=== PATIENT | female | born 1995 | race Caucasian/White ===

== ENCOUNTER 2019-05-06 08:07 | Inpatient (IN) | payer OTHER, BC ==
[2019-05-06] MEDS ORDERED: Ringers Lactate 1,000 ML IV PRN (18:43)
[2019-05-06] MEDS ORDERED: METHYLERGONOVINE 0.2MG/ML AMP IM PRN (18:43)
[2019-05-06] MEDS ORDERED: CARBOPROST TROME 250 MCG/ML IM PRN (18:43)
[2019-05-06] MEDS ORDERED: BUTORPHANOL 1 MG/ML INJ IV PRN (18:43)
[2019-05-06] MEDS ORDERED: PROMETHAZINE 25 MG/ML VIAL IV PRN ×2 (18:43)
[2019-05-06] MEDS ORDERED: Ringers Lactate 1,000 ML IV SCH (19:00)
[2019-05-06] MEDS ORDERED: OXYTOCIN/LR 20 UNIT/1,000 ML BAG IV SCH (19:00)
[2019-05-06 19:06] LABS: RPR Titer ND
[2019-05-06 19:08] LABS: Absolute Lymphocytes (CBC) 2.8 K/uL (0.7-4.9); Basophils % 0.2 % (0-1.3); Eosinophils % 0.4 % (0-4.4); Hematocrit 33.5 % (36.0-45.0); Lymphocytes % 22.3 % (15.3-44.8); MPV 9.1 fL (7.6-11.3); Monocytes % 3.3 % (3.3-12.3); RBC Red Blood Cell Count 3.82 M/uL (3.86-4.86)
[2019-05-06] MEDS ORDERED: miSOPROStol 100 MCG TAB ONE (19:16)
[2019-05-06] MEDS ORDERED: ZOLPIDEM TARTRATE 5 MG TABLET PO PRN (19:27)
[2019-05-06 21:52] LABS: RPR (Rapid Plasma Reagin) NON-REACT (NON-REACT)
[2019-05-06] MEDS: miSOPROStol 100 MCG TAB VAG SCH (23:00)
[2019-05-07] MEDS: miSOPROStol 100 MCG TAB VAG SCH (03:01)
[2019-05-07] MEDS ORDERED: OXYTOCIN/LR 20 UNIT/1,000 ML BAG IV SCH (07:00)
[2019-05-07] MEDS ORDERED: ROPIVACAINE HCL 100 ML IV PRN (09:10)
[2019-05-07] MEDS ORDERED: EPHEDRINE SULF 50 MG/ML VIAL IV PRN (09:14)
[2019-05-07] MEDS ORDERED: ROPIVACAINE HCL 0.2% 20ML AMP IV SCH (10:00)
[2019-05-07] MEDS ORDERED: FENTANYL CITR 100 MCG/2 ML ONE (10:05)
--- NOTE | 2019-05-07 10:28 | P.OP ---
Date of Service: 05/07/19 Findings and Operative Technique Patient is a 24-year-old 1 para 0 at 39 weeks and 6 days gestation who was admitted last night for elective induction of labor. She received 3 doses of Cytotec for cervical ripening. She is now 3+ cm dilated and awaiting epidural placement. Epidural has been placed Patient was examined following epidural placement was noted to be 4-5 cm dilated, 70% effaced with bulging membranes. Rupture of membranes was performed and meconium-stained fluid was noted. category 2 heart rate tracing with a baseline of 150 beats per min toco contractions every 3-4 min. Pitocin is currently off. Will restart as needed. Epidural for pain management. Anticipate vaginal .
[2019-05-07] MEDS ORDERED: LIDOCAINE 1% 20 ML MDV ONE (14:29)
[2019-05-07] MEDS ORDERED: CARBOPROST TROME 250 MCG/ML IM ONE (14:29)
[2019-05-07] MEDS ORDERED: METHYLERGONOVINE 0.2MG/ML AMP IM ONE (14:30)
[2019-05-07] MEDS ORDERED: METHYLERGONOVINE 0.2MG/ML AMP IM PRN (15:57)
[2019-05-07] MEDS ORDERED: MEASLES,MUMPS,RUBELLA VAC 0.5ML SQVAC ONE (15:57)
[2019-05-07] MEDS ORDERED: Tdap (Diph,Pertuss(Acell),Tet Vac) 0.5 ML SYR IMVAC ONE (15:57)
[2019-05-07] MEDS ORDERED: DOCUSATE NA/SENNA CONC 1 TAB PO PRN (15:57)
[2019-05-07] MEDS ORDERED: Oxycodone HCl/Acetaminophen 1 TAB TAB PO PRN (15:57)
[2019-05-07] MEDS ORDERED: CARBOPROST TROME 250 MCG/ML IM PRN (15:57)
[2019-05-07] MEDS ORDERED: ACETAMINOPHEN 500 MG TAB PO PRN (15:57)
[2019-05-07] MEDS ORDERED: ONDANSETRON 4 MG/2 ML VIAL IV PRN (15:57)
[2019-05-07] MEDS ORDERED: Ringers Lactate 1,000 ML IV SCH (16:00)
--- NOTE | 2019-05-07 17:53 | P.OP ---
Date of Service: 05/07/19 Findings and Operative Technique Patient delivered a viable male in cephalic presentation on 05/07/19 at __ ___. Infant was delivered over a midline episiotomy
[2019-05-07 18:17] VITALS: BMI 36.3
[2019-05-08] MEDS: IBUPROFEN 200 MG TAB PO PRN ×2 (01:25→08:30)
[2019-05-08 04:32] LABS: Absolute Lymphocytes (CBC) 3.2 K/uL (0.7-4.9); Basophils % 0.2 % (0-1.3); Eosinophils % 0.3 % (0-4.4); Hematocrit 29.2 % (36.0-45.0); Lymphocytes % 21.5 % (15.3-44.8); MPV 9.4 fL (7.6-11.3); Monocytes % 6.4 % (3.3-12.3); RBC Red Blood Cell Count 3.34 M/uL (3.86-4.86)
--- NOTE | 2019-05-08 09:44 | P.DS ---
Admission Date: 05/06/19 Discharge Date: 05/08/19 Disposition: ROUTINE DISCHARGE Discharge Condition: GOOD Vital Signs/Physical Exam: Temp Pulse Resp BP Pulse Ox 98.8 F 93 H 20 109/63 05/08/19 00:00 05/08/19 00:00 05/08/19 00:00 05/08/19 00:00 Laboratory Data at Discharge: WBC 15.1 K/uL (4.3-10.9) H D 05/08/19 04:09 Hgb 9.7 g/dL (12.0-15.0) L 05/08/19 04:09 Hct 29.2 % (36.0-45.0) L 05/08/19 04:09 Plt Count 186 K/uL (152-406) 05/08/19 04:09 Home Medications: Pnv No.95/Ferrous Fum/Folic AC [ Caplet] 1 each PO BID 05/07/19
[2019-05-08 13:04] VITALS: BP 110/63; TEMP 97.7
[2019-05-09 12:34] LABS: HBsAG Nonreactive (Nonreactive)
== END 2019-05-08 17:10 | disposition home or self-care (01) | DRG 807 ==
LOC: 2ND-WC 17:25
PROVIDERS: ADMIT Student in an Organized Health Care Education/Training Program; ATTEND Student in an Organized Health Care Education/Training Program
PROC: 3E0P7VZ Introduction of Hormone into Female Reproductive, Via Natural or Artificial Opening (ICD-10-PCS; 2019-05-06)
PROC: 10E0XZZ Delivery of Products of Conception, External Approach (ICD-10-PCS; principal; 2019-05-07)
PROC: 0W8NXZZ Division of Female Perineum, External Approach (ICD-10-PCS; 2019-05-07)
DX: O77.0 Labor and delivery complicated by meconium in amniotic fluid (principal); Z37.0 Single live birth; Z3A.39 39 weeks gestation of pregnancy
CPT/HCPCS: 36415; 85025; 86592; 86850; 86900; 86901; 87340; J0595; J2210; J2590; J2795; J3010

== ENCOUNTER 2022-04-21 04:30 | Inpatient (IN) | payer BC ==
--- NOTE | 2022-04-19 13:53 | PREOPHP ---
Date of Admission: 04/21/2022 History Of Present Illness: A 27-year-old, 3, para 1, 1 miscarriage, 1 previous vaginal deli very. Had an ultrasound yesterday and baby was breech. Options discussed, waiting for labor to see if the baby rotates spontaneously for rotation attempt or perform or even vagina l delivery discussed. The patient has chosen, she wishes to . Infection; blood loss; anest hetic complications; injury to bladder, bowel, ureter; postoperative complications; clots in legs; an d pneumonia discussed. The patient knows fully this does not constitute all the possible problems th at could occur during or following surgery. Family History: Father, mother and grandparents with hypertension. Past Medical History: No serious illnesses. Past Surgical History: No previous surgeries. Allergies: NO ALLERGIES. Medications: vitamins prior to admission. Social History: Does not smoke. Physical Examination: HEENT: Clear. Pupils equal, round, reactive to light and accommodation. Conjunctivae well perfused . No oral, lingual, or buccal lesions. Chest and Lungs: Clear. Heart: Without murmurs, thrills, heaves, or rubs. Breasts: Without masses on previous visits. Abdomen: Term size. Extremities: Clear without edema, cyanosis, or clubbing. Assessment And Plan: The patient is 1.5 cm, 40% to 50% effaced. Baby is still breech with rear-end presenting. We will schedule her for on of this week according to her wishes. If she goes into labor before, then she will get out and we will see what position of the baby is in an d we will get a flat plate that morning. If the baby is rotated, we will call off the and induce. Full discussion. The patient in agreement. ZACK/MAY Voice ID: [id number]
[2022-04-20 13:15] LABS: Absolute Lymphocytes (CBC) 2.7 K/uL (0.7-4.9); Lymphocytes % 26.2 % (15.3-44.8); MCV 81.2 fL (80-100); MPV 8.4 fL (7.6-11.3); RBC Red Blood Cell Count 3.69 M/uL (3.86-4.86)
[2022-04-20 13:22] LABS: Urine Appearance Clear (Clear); Urine Bilirubin Negative (Negative); Urine Blood Negative (Negative); Urine Color Yellow (Yellow); Urine Glucose Negative (Negative); Urine Protein Negative (Negative); Urine Specific Gravity >=1.030 (1.005-1.030); Urine Urobilinogen 0.2 mg/dL (0.2-1.0)
[2022-04-21 04:03] LABS: RPR (Rapid Plasma Reagin) NON-REACT (NON-REACT)
[~2022-04-21 04:30] MED LIST: CARBOPROST TROME 250 MCG/ML IM ONE; FAMOTIDINE 20 MG/2 ML VIAL IV ONE; METHYLERGONOVINE 0.2MG/ML AMP IM ONE; NA CIT/CITRIC AC 30 ML ORAL UDC PO ONE
[2022-04-21] MEDS ORDERED: METOCLOPRAMIDE 10 MG/2mL INJ IV SCH (05:00)
[2022-04-21] MEDS ORDERED: Ringers Lactate 1,000 ML IV SCH (05:00)
[2022-04-21] MEDS ORDERED: CEFAZOLIN SODIUM 2 GM in NA CHLORIDE 0.9% 100 ML IVPB SCH (05:00)
[2022-04-21] MEDS: Ringers Lactate 1,000 ML IV PRN ×2 (05:05→06:10)
[2022-04-21] MEDS ORDERED: CEFAZOLIN 2 GM IN 0.9% NACL 2 GM/100 ML BAG ONE (05:32)
[2022-04-21 05:54] VITALS: BMI 35.5
[2022-04-21] MEDS ORDERED: MORPHINE SULFATE/PF 1 MG/ML (10 ML AMP) ONE (07:03)
[2022-04-21] MEDS ORDERED: LIDOCAINE 1% MPF 5 ML VIAL ONE (07:03)
[2022-04-21] MEDS ORDERED: OXYTOCIN 10 UNIT/ML ML ONE (07:03)
[2022-04-21] MEDS ORDERED: BUPIVACAINE 0.75% (PF) 2 ML SP ONE (07:03)
[2022-04-21] MEDS ORDERED: EPHEDRINE SULF 50 MG/ML VIAL ONE (07:36)
--- NOTE | 2022-04-21 07:39 | RAD REPORT ---
EXAM DESCRIPTION: RAD - Abdomen Single View - 04/21/2022 6:53 am CLINICAL HISTORY: to see if baby is head down COMPARISON: OB Complete dated 04/18/2022 FINDINGS/IMPRESSION: The fetus is in breech position.
[2022-04-21] MEDS ORDERED: MIDAZOLAM HCL 2 MG/2 ML INJ ONE (07:59)
[2022-04-21] MEDS ORDERED: BISACODYL 10 MG RECTAL SUPP RC PRN (08:31)
[2022-04-21] MEDS ORDERED: ONDANSETRON 4 MG/2 ML VIAL IV PRN (08:31)
[2022-04-21] MEDS ORDERED: ACETAMINOPHEN 500 MG TAB PO PRN ×2 (08:31)
[2022-04-21] MEDS ORDERED: KETOROLAC 30 MG/ML INJ IM PRN (08:31)
[2022-04-21] MEDS ORDERED: KETOROLAC 30 MG/ML INJ IV PRN (08:31)
[2022-04-21] MEDS ORDERED: DIPHENHYDRAMINE 25 MG TAB/CAP PO PRN (08:31)
[2022-04-21] MEDS ORDERED: ONDANSETRON 4 MG (ODT) TAB PO PRN (08:31)
[2022-04-21] MEDS ORDERED: Oxycodone HCl/Acetaminophen 1 TAB TAB PO PRN ×2 (08:31)
[2022-04-21] MEDS ORDERED: hydrOXYzine HCL 25 MG TAB PO PRN (08:53)
[2022-04-21] MEDS: D5LR 1,000 ML with OXYTOCIN 20 UNIT IV SCH ×4 (09:38→21:52)
[2022-04-21] MEDS: METHYLERGONOVINE 0.2 MG TAB PO SCH ×4 (09:38→22:47)
--- NOTE | 2022-04-21 11:50 | OP ---
Surgeon: Tam Jamil MD Momd Teacher: Saji Eldridge M.D. Anesthesiologist: Dr. Thurston. Indication: A 27-year-old, 2, para 1, 39 weeks, breech presentation, declined rotation attem pt. Full preoperative counseling concerning procedure and possible complications including infection ; blood loss; anesthetic complications; injury to bladder, bowel, ureter; postoperative complications ; clots in legs; pneumonia. The patient knows fully well these not constitute all the possible probl ems that could occur during or following surgery. Anesthesia: Spinal block anesthesia. Description Of Procedure: After prepping and draping, time-out was performed. Pfannenstiel incision was created. The incision was carried to the fascia. The fascia was incised and incision carried t ransversely bilaterally. Anterior fascial plane was developed with both blunt and sharp dissection. A small bleeder in the rectus muscle was sutured with a [id number]-sd-ehtrh stitch. The lower uterine s egment was developed. The bladder flap was developed. Low transverse uterine incision was created. A 7-pound 8-ounce baby was delivered, male, Apgars 9 and 9. Placenta removed manually. Uterus liseth red of clot and blood and exteriorized. Cervical os dilated with ring clamp. The lower uterine segm ent very thick, numerous bleeders, Kirkpatrick clamps for these. Running locked stitch of 1 chromic f ollowed by imbricating stitch of 1 chromic. 0.2 mg of Methergine IM. Estimated blood loss during pr ocedure 1000 to 1100 cc. The patient had come into the hospital anemic and admitted. She had been t aking her vitamins and iron as she should have. Gutters clear of clot and blood. Uterus re placed in the peritoneal cavity. Inspection of suture line showed no further bleeding. Rectus muscl es reapproximated with 0 Vicryl, 2 interrupted sutures. The fascia was closed with 1 Vicryl running from either angle to the midline. Subcutaneous tissue closed with 2-0 plain. Mimi used for the s kin. The patient had been given 2 g of Ancef for prophylaxis. Tolerated all procedures well. Trans ferred back to her room in good condition. Final Diagnoses: Term intrauterine , breech presentation, primary section, spinal block anesthesia, mild uterine hypotonus, preadmission anemia. NBC/MODL Voice ID: [id number] Report ID: [id number]
[2022-04-21] MEDS: OXYTOCIN/LR 20 UNIT/1,000 ML BAG IV SCH (16:24)
[2022-04-21] MEDS ORDERED: CEFAZOLIN SODIUM 2 GM in NA CHLORIDE 0.9% 100 ML IVPB ONE (17:00)
[2022-04-22] MEDS: OXYTOCIN/LR 20 UNIT/1,000 ML BAG IV SCH (01:10)
--- NOTE | 2022-04-22 05:54 | OP ---
Date of Procedure: 04/21/2022 Surgeon: Saji Eldridge MD, Anesthesiologist: Dr. Eastman. Preoperative Diagnosis: A 27-year-old, 2, para 1, 39 week, breech presentation, female of Dr Tiffany Jamil who had inability to be rotated due to the declination of attempt. She had been seen b y Dr. Jamil, worked up, and discussion of was planned per Dr. Jamil. Please see Dr. Jamil' s note for full details regarding this. Co-surgeon: Saji Eldridge M.D. Anesthesia: Spinal block anesthesia utilized. Complications: None. Drains: None. No blood products were administered during the procedure. Counts: Correct at the end of the procedure. Procedure In Detail: The patient had spinal block anesthesia performed. Ultimately, patient was the n positioned, prepped and draped in the usual sterile fashion with SCDs on and pumping prior to proce dure. After the patient was prepped and draped in the usual sterile fashion, adequate anesthesia was verified. A Pfannenstiel incision was created with a 10 blade down through subcutaneous tissue thro ugh the fat and carried down to the fascia. Fascia was incised and the incision was carried out ca sversely bilaterally. The anterior fascial plane was developed with both blunt and sharp dissection to the anterior rectus compartment. A small bleeding rectus muscle vessel was identified and suture ligature with a guguuo-vr-nazkz suture utilizing a 2-0 Vicryl suture. A lower uterine segment was de veloped. The bladder flap was developed as well. Low transverse uterine incision was created. Ulti mately, pressure was applied on the patient's epigastric abdominal compartment after the uterus was o pened appropriately and Dr. Jamil was able to manipulate the buttock and bilateral lower extremities out and ultimately the arms were delivered next and the head was delivered in a fairly rapid fashion. The baby was a 7 pounds 8 ounce male delivered with Apgars 9 and 9. Placenta was removed manually. Uterus was cleared of clot and blood and exteriorized. Cervical os was dilated with a ring clamp. The lower uterine segment was very thick. Numerous bleeders were encountered with Kirkpatrick clamps were applied to these with good hemostasis. #1 chromic was utilized to assist with the reapproximat ion of the uterus musculature and lining. 0.2 mg of Methergine IM was administered. Estimated blood loss during the procedure was approximately 1 L. The patient did well throughout the procedure. He r bilateral right and left colic gutters were cleared of clot and blood. No bleeding or additional m aneuvers were required at that point. The uterus was then placed in the peritoneal cavity. Inspecti on of the suture lines showed no further bleeding and as such, no additional hemostaters were require d. The rectus muscle was reapproximated with 0 Vicryl suture x2 running from lateral to medial. The fascia was closed with a 1-0 Vicryl suture running from either angle to the midline as well. Subcut aneous tissue was closed with a 2-0 plain and the patient also had andra used. The patient tolerat ed the procedure well without any evidence of complication, transferred back to the room in good cond ition. All counts were correct at the end of the case. Please see Dr. Jamil's note for full details regarding the procedure. EDUARDO/MAY Voice ID: [id number] Report ID: [id number]
--- NOTE | 2022-04-22 07:03 | PN ---
Postoperatively, the patient is doing quite well. H and H with expected change from 30 to approximat bola 27. Pulses are good. Lochia is normal. The patient has had Toradol 1 time, no other analgesics . We will discontinue Licona and IV. She has already ambulated slightly in the room and will begin a mbulation in the [place]. No post spinal block problems. She is Rh positive, immune to Rubella. She h as had her Tdap immunization. If all goes well, she will go home tomorrow morning. Full dismissal i nstructions given, but will go over it again tomorrow. She is to report any temperature elevation of 100 degrees or greater, severe pain, heavy bleeding, or any other type of abnormalities. She is to call the office either today or Monday for an appointment postoperatively. Offered analgesics when she is dismissed, but she will decide that tomorrow. She knows she is to get back on her vi tamins and iron, which she has been neglecting, so that her blood count will increase and she will fe el better in the postoperative period. ZACK/MAY Voice ID: [id number] Report ID: [id number]
[2022-04-22] MEDS: IBUPROFEN 600 MG TAB PO PRN ×2 (08:54→16:06)
[2022-04-22 16:42] VITALS: TEMP 97.2
[2022-04-22 17:48] VITALS: BP 114/60
== END 2022-04-22 17:40 | disposition home or self-care (01) | DRG 788 ==
LOC: 2ND-WC 04:30
PROVIDERS: ADMIT Specialist; ATTEND Specialist
PROC: 10907ZC Drainage of Amniotic Fluid, Therapeutic from Products of Conception, Via Natural or Artificial Opening (ICD-10-PCS; 2022-04-21)
PROC: 06LY0ZZ Occlusion of Lower Vein, Open Approach (ICD-10-PCS; 2022-04-21)
PROC: 10D00Z1 Extraction of Products of Conception, Low, Open Approach (ICD-10-PCS; principal; 2022-04-21 07:30)
DX: O64.1XX0 Obstructed labor due to breech presentation, not applicable or unspecified (principal); O62.2 Other uterine inertia; O67.8 Other intrapartum hemorrhage; O99.02 Anemia complicating childbirth; D64.9 Anemia, unspecified; Z3A.39 39 weeks gestation of pregnancy; Z37.0 Single live birth; Z20.822 Contact with and (suspected) exposure to COVID-19
CPT/HCPCS: 36415; 74018; 81003; 85014; 85025; 86592; 86900; 86901; 87340; 88307; J0690; J2210; J2250; J2405; J2590; J2765; J3490; J7120; J7121; U0003

== ENCOUNTER 2023-05-11 08:35 | Day surgery (SDC) | payer BC ==
[2023-05-11] MEDS: Ringers Lactate 1,000 ML IV ONE ×2 (09:00→10:17)
[2023-05-11] MEDS ORDERED: propofoL 200 MG/20 ML VIAL IV ONE (09:49)
[2023-05-11] MEDS ORDERED: ONDANSETRON 4 MG/2 ML VIAL ONE ×2 (09:49→12:43)
[2023-05-11] MEDS ORDERED: FENTANYL CITR 100 MCG/2 ML ONE ×2 (09:49→11:44)
[2023-05-11] MEDS ORDERED: MIDAZOLAM HCL 2 MG/2 ML INJ ONE (09:49)
[2023-05-11] MEDS ORDERED: LIDOCAINE 2% MPF 5 ML VIAL ONE (09:49)
[2023-05-11] MEDS ORDERED: NEOSTIGMINE 1 MG/ML -10 ML VIAL ONE (09:50)
[2023-05-11] MEDS ORDERED: ROCURONIUM 50 MG/5 ML VIAL IV ONE (09:50)
[2023-05-11] MEDS ORDERED: GLYCOPYRROLATE 0.2 MG/ML SYR ONE (09:50)
[2023-05-11] MEDS ORDERED: dexAMETHasone 4 MG/ML VIAL ONE (09:56)
[2023-05-11] MEDS: BUPIVACAINE 0.25% PF 10 ML VIAL ONE ×2 (10:16→11:56)
[2023-05-11] MEDS ORDERED: EPINEPHRINE/PF 1 MG/ML AMP ONE (11:22)
[2023-05-11] MEDS ORDERED: BUPIVACAINE 0.25% PF 10 ML VIAL ONE (11:22)
[2023-05-11] MEDS ORDERED: SUGAMMADEX SODIUM 200 MG/2 ML VIAL IV ONE (12:18)
[2023-05-11] MEDS: HYDROMORPHONE HCL 1 MG/ML INJ ONE ×2 (12:21→12:30)
[2023-05-11 14:03] VITALS: BP 100/56; TEMP 97.2; O2SAT 100
--- NOTE | 2023-05-11 16:45 | OP ---
Date of Procedure: 05/11/2023 Surgeon: ANSON FOX Preoperative Diagnoses: 1.Chronic tonsillitis. 2.Globus pharyngis. Postoperative Diagnoses: 1.Chronic tonsillitis. 2.Chronic adenoiditis. 3.Globus pharyngis. Procedures: 1.Tonsillectomy. 2.Adenoidectomy. Anesthesia: General endotracheal anesthesia was administered. I also infiltrated approximately 8 to 10 mL of 0.25% Marcaine with 1:100,000 epinephrine into bilateral tonsillar fossae and soft palate. Estimated Blood Loss: Less than 5 mL. Specimens: Bilateral tonsils submitted to pathology for evaluation. Findings: Bilateral tonsillar hypertrophy 2+/4; adenoidal hypertrophy 2+/4. Complications: None. Disposition: Stable. The patient tolerated the procedure well. Indication For Procedure: The patient is a pleasant 28-year-old female, who [facility] sore throat secondary to tonsillar infections. These are indications to bring the patient to operative suite as the patient has not responded to outpatient oral antibiotic therap y. All questions were answered. Risks versus benefits and complications were explained in detail an d a consent form was signed, which was placed on the chart. Description Of Procedure: The patient was transferred from the preoperative holding area to the oper ative suite by Department of Anesthesia, placed on the operating table supine, sedated and intubated in normal fashion. Table was rotated 90 degrees and a shoulder roll was placed. Head and eyes were covered with sterile blue towels and moist Ray-Merle was placed over the upper lip for protection. A McIvor retractor was introduced to the oral commissure and directed along the endotracheal tube and suspended from the Mc stand. Tonsils were examined, found to be hypertrophic. Thus, I retracted the superior poles midline with straight Allis clamps. I then dissected through the mucosa down the peritonsillar fascial planes with monopolar electrocautery on a setting of 20 for coagulation. I the n dissected within the planes whereby the inferior poles were amputated with suction Bovie. Saline i rrigation was introduced into the oral cavity and removed with suction Bovie. Next, I inserted 2 red rubber catheters in the bilateral nasal cavities in order to suspend soft [place] te and uvula. Examination of the adenoids revealed hypertrophy 2+/4 blocking the posterior choanae p artially. Thus, I used a blending of 35 of coagulation and 20 of cutting to perform the adenoidectom y. Saline irrigation was introduced into the oral cavity and were removed with suction Bovie. Next, I removed the red rubber catheters and infiltrated bilateral tonsillar fossae with approximatel y 8 to 10 mL of 0.25% Marcaine with 1:100,000 epinephrine. I then examined all areas for hemostasis and hemostasis was achieved. I inserted a flexible orogastric tube into the esophagus and stomach an d all fluid contents were removed. The patient tolerated the procedure well. McIvor retractor was removed and the patient's jaw was reno cked and found to be in proper alignment. The head turban and shoulder roll were removed and she was returned back to Department of Anesthesia in stable condition. In the postoperative area, she was c omplaining of tongue pain and upon examination, she had right tongue swelling which I believe was fro m her biting down on the tube upon awakening. Thus, I will send her not only on analgesic medication, but also steroids to help with tongue swelling. She will follow up in 1-2 weeks or sooner if needed. CHIDI/MAY Voice ID: [id number] Report ID: [id number]
== END 2023-05-11 13:34 | disposition home or self-care (01) ==
LOC: OR 08:35
PROVIDERS: ATTEND Otolaryngology Facial Plastic Surgery
PROC: 0CTPXZZ Resection of Tonsils, External Approach (ICD-10-PCS; 2023-05-11)
PROC: 0CTQXZZ Resection of Adenoids, External Approach (ICD-10-PCS; principal; 2023-05-11 10:30)
DX: J35.01 Chronic tonsillitis (principal); J35.02 Chronic adenoiditis; F45.8 Other somatoform disorders
CPT/HCPCS: 88304; 42821; J2704; J1100; J2710; J0171; J2001; J2250; J3010 ×2; J1170; J2405 ×2; J7120